=== PATIENT | male | born 1975 | race African-American/Black ===

== ENCOUNTER 2025-06-20 12:08 | Outpatient (CLI) | payer OTHER, SELFPAY ==
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
--- NOTE | ~2025-06-20 | XR_ITS ---
XR lumbar spine 6V w bending Indication: M54.50 - Low back pain, unspecified Comparison: None Findings: No fracture identified, no subluxation flexion-extension. Moderate loss of disc height at L5-S1. Soft tissues unremarkable Impression: No acute abnormality. Reviewed, dictated and finalized at location A. Impression: No acute abnormality.
--- NOTE | ~2025-06-20 | XR_ITS ---
EXAMINATION: XR hip RT min 2V, 06/20/2025 12:20 CDT HISTORY: M25.551 - Pain in right hip COMPARISON: No comparisons available. Findings: No acute fracture or malalignment. No significant degenerative changes. Soft tissues unremarkable. Impression: No acute fracture or malalignment. Reviewed, dictated and finalized at location A. Impression: No acute fracture or malalignment.
--- NOTE | ~2025-06-20 | XR_ITS ---
EXAMINATION: XR sacroiliac joints min 3V, 06/20/2025 12:20 CDT HISTORY: G89.29 - Other chronic pain, RIGHT SIDE WORSE COMPARISON: No comparisons available. Findings: No acute fracture or malalignment. No significant sclerosis of the sacroiliac joints, there is no bridging osteophyte formation or erosion identified. Soft tissues unremarkable. Impression: No acute fracture or malalignment. Reviewed, dictated and finalized at location A. Impression: No acute fracture or malalignment.
--- NOTE | ~2025-06-20 | XR_ITS ---
XR cervical spine 4-5V Indication: M54.2 - Cervicalgia Comparison: None Findings: Grade 1 retrolisthesis of C5 on C6, no fracture. Severe loss of disc height C5-6 and C6-7. Soft tissues unremarkable Impression: No acute abnormality. Reviewed, dictated and finalized at location A. Impression: No acute abnormality.
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
--- OUTSIDE RECORDS SUMMARY | 2025-06-20 13:59 | XMS_ITS | Encounter Summary ---
Author Organization [facility] Address [address] [facility] [place] [address] Care Team Providers Care Ring Stamper Name Role Phone Unavailable Primary Care Provider Unavailabl e Encounter Details Date Type Department Care Team (Late st Contact Info) Description 07/15/2022 Ophth Exam [facility] [address] [place] [address] Kacie Carlos DO [address] [place] [address] Social History Tobacco Use Types Packs/Day Years Used Date Smoking Tobacco: Former Cigarettes Q uit: 10/2018 Smokeless Tobacco: Never Alcohol Use Standard Drinks/Week Comments No 0 (1 standard drink = 0.6 oz pur e alcohol) Sex and Gender Information Value Date Recorded Sex Assigned at Not on file Legal Sex Male 5:32 AM [employer] Gender Identity Male 07/15/2022 6:19 PM CDT Sexual Orientation Not on file Occupation Industry Job Start Date Job End Date Not on file Not on file Not on file Not on file documented as of this encounter Plan of Treatment Not on file documented as of this encounter Visit Diagnoses Not on filedocumented in this encounter
--- OUTSIDE RECORDS SUMMARY | 2025-06-20 13:59 | XMS_ITS | Clinical Summary ---
Author Organization [facility] Address [address] [place] [address] Care Team Providers Care Family Nurse Practitioner Name Role Phone Unknown, Notinfile Primary Care Provider Unavail able Allergies Active Allergy Reactions Criticality Noted Date Comments Hydrocodone-Acetamin ophen Other (See comments) Low 02/07/2022 Pt reports that he only took it one time and it upset him States not allergic too Medications naproxen (NAPROSYN) 500 mg tablet Take 1 tablet (500 mg total) by mouth 2 (two) times a day with meals 30 tablet 4 Active Additional Information Patient taking differently:500 mg oral2 times daily PRN, Informant: Self, Reported on 12/29/2023 cyclobenzaprine (FLEXERIL) 10 mg tablet Take 1 tablet (10 mg total) by mouth 2 (two) times a day as needed for muscle spasms 20 tablet 4 Active Additional Information Patient not taking.Reported on 12/29/[address] (CYMBALTA) 30 mg capsule Take 1 capsule (30 mg total) by mouth daily 4 Active fluticasone propionate (FLONASE) 50 mcg/actuation nasal spray 2 sprays daily Act rema glimepiride (AMARYL) 2 mg tablet Take 1 tablet (2 mg total) by mouth daily Active Active Problems Problem Noted Date Diagnosed Date 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 Never 12/29/2023 Average Number of Drinks Not on file 024 Frequency of Binge Drinking Not on file 12/04 Hunger Vital Sign Answer Date Recorded Within the past 12 months, y ou worried that your food would run out before you got the money to buy more. Sometimes true Within the past 12 months, t he food you bought just didn't last and you didn't have money to get more. Sometimes true Personal Safety Answer Date Recorded Have you ever been in or are you currently in a harmful physical or emotional relationship or is someone making you feel afraid or unsafe? 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 Gender Identity Not on file Sexual Orientation Not on file Obstetrics History Last Filed Vital Signs Vital Sign Reading Time Taken Comments Blood Pressure 151/95 02/21/2025 10:36 AM CDT Pulse 72 02/21/2025 10:36 AM CDT Temperature 36.8 C (98.2 F) 02/21/2025 10:36 AM CDT Respiratory Rate 18 02/21/2025 10:3 6 AM CDT Oxygen Saturation 98% 02/21/2025 10: 36 AM CDT Inhaled Oxygen Concentration - - Weight 104.9 kg (231 lb 3.2 oz) 12/29/2023 1:08 PM CDT Height 175.3 cm (5' 9) 12/29/2023 1:08 PM CDT Body Mass Index 34.14 12/29/2023 1:08 PM CDT Plan of Treatment Health Maintenance Due Date Last Done Comments Colon Cancer Screening-Colonoscopy 1977 Depression Screening 1977 Hepatitis C Screening 1977 Prostate Cancer Screening-PSA 1977 Hepatitis B Screening 1995 Regular Well Visit/Exam 18-64 1995 Influenza Vaccine (#1) 2025 DTaP/Tdap/Td Vaccine (4 - Td or Tdap) 12/02/2026 12/02/2016, 12/02/2016, 07/20/2015 Pneumococcal vaccine <65 Aged Out No longer eligible based on patient's age to complete this topic Insurance [facility] [employer] GENERIC COMPENSATION Care Teams Family Nurse Practitioner Relationship Specialty Start Date End Date Unknown, Notinfile PCP - General 02/21/25
--- OUTSIDE RECORDS SUMMARY | 2025-06-20 13:59 | XMS_ITS | Clinical Summary ---
Author Organization [facility] Address [address] [place] [address] Care Team Providers Care Toaster Element Repairer Name Role Phone Unavailable Primary Care Provider Unavailabl e Source Comments [facility],non-owned Affiliates and Associated Physician Practices is amultiple site organization consisting of ambulatory clinics and hospital sitesin [place], [place], [place] and [place]. This disclosure is being madepursuant to the Care Everywhere program and may not contain all information available regarding this patient. Last updated 18.[facility] Allergies No known active allergies Medications * This document contains information received from the source organization and may not represent a complete record from that organization. * Be aware that medications may not be up to date on this document. Alwaysverify current medications with the patient. 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 Essential hypertension 05/06/2018 Family History Medical History Relation Name Comments Cancer - Other Maternal Grandmother Hypertension Sister Relation Name Status Comments Father Maternal Grandmother Mother Alive Sister Social History Tobacco Use Types Packs/Day Years Used Date Smoking Tobacco: Former Cigarettes Q uit: 10/2018 Smokeless Tobacco: Never Tobacco Cessation:Ready to Q uit: No; Counseling Given: No Alcohol Use Standard Drinks/Week Comments No 0 (1 standard drink = 0.6 oz pur e alcohol) Sex and Gender Information Value Date Recorded Sex Assigned at Not on file 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 Gender Identity Male 07/15/2022 6:19 PM CDT Sexual Orientation Not on file Occupation Industry Job Start Date Job End Date Not on file Not on file Not on file Not on file Last Filed Vital Signs Vital Sign Reading Time Taken Comments Blood Pressure 150/96 06/03/2024 12:45 PM CDT Pulse 73 06/03/2024 12:50 PM CDT Temperature 36.7 C (98 F) 06/03/2024 9:34 AM CDT Respiratory Rate 11 06/03/2024 12:50 PM CDT Oxygen Saturation 98% 06/03/2024 12:45 PM CDT Inhaled Oxygen Concentration - - Weight 102.1 kg (225 lb) 07/15/2022 3:04 PM CDT Height 175.3 cm (5' 9) 07/15/2022 3:04 PM CDT Body Mass Index 33.23 07/15/2022 3:04 PM CDT Plan of Treatment Health Maintenance Due Date Last Done Comments COLOGUARD (AGES 45-75) - COL ON CA SCREENING 1977 COLON MONITORING 1977 COLONOSCOPY - COLON CA SCREENING 1977 CT COLONOGRAPHY - COLON CA SCREENING 1977 Colorectal Cancer Screening 1977 FIT - COLON CA SCREENING 1977 FLEX SIG - COLON CA SCREENING 1977 LIPID TESTING 1977 HIV SCREENING 1992 HEPATITIS C SCREENING 09/07/1995 DTAP/TDAP/TD VACCINES (1 - Tdap) 1996 HEPATITIS B VACCINE (1 of 3 - 19+ 3-dose series) 1996 DEPRESSION SCREENING 10/05/2024 COVID-19 VACCINE ( - 2023-2 5 season) 2025 INFLUENZA VACCINE (#1) 2025 SCREENING FOR DIABETES 06/03/2027 4, 07/15/2022 ZOSTER VACCINE (1 of 2) 2027 HIB VACCINE Aged Out No longer eligi ble based on patient's age to complete this topic HPV VACCINE Aged Out No longer eligi ble based on patient's age to complete this topic MENINGOCOCCAL (Group B) VACCINE SHARED DECISION-MAKING Aged Out No longer eligible based on patient's age to complete this topic MENINGOCOCCAL GROUPS A/C/Y/W VACCINE Aged Out No longer eligible b ased on patient's age to complete this topic PNEUMOCOCCAL VACCINE Aged Out No long er eligible based on patient's age to complete this topic Procedures Procedure Name Priority Date/Time Associated Diagnosis Comments COMPREHENSIVE METABOLIC PANEL STAT 06/03/2024 9:39 AM CDT from Last 3 Months or Most Recently Relevant to Health Maintenance Results * (ABNORMAL) COMPREHENSIVE METABOLIC PANEL (06/03/2024 9:39 AM CDT) BUN 16 7 - 26 mg/dL 06/03/2024 10:15 AM [facility] Creatinine 1.08 0.71 - 1.16 mg/dL 06/03/2024 10:15 AM [facility] Sodium 137 136 - 145 mmol/L 06/03/2024 10:15 AM [facility] Potassium 3.8 3.5 - 4.5 mmol/L 06/03/2024 10:15 AM [facility] Chloride 107 98 - 107 mmol/L 06/03/2024 10:15 AM [facility] CO2 25 22 - 29 mmol/L 06/03/2024 10:15 AM [facility] Glucose 175(H) 70 - 115 mg/dL 06/03/2024 10:15 AM [facility] Calcium 9.6 8.4 - 10.2 mg/dL 06/03/2024 10:15 AM [facility] Protein Total 7.3 6.0 - 8.3 g/dL 06/03/2024 10:15 AM [facility] Albumin 4.1 3.4 - 5.0 g/dL 06/03/2024 10:15 AM [facility] Bilirubin Total 0.4 0.2 - 1.2 mg/dL 06/03/2024 10:15 AM [facility] Alkaline Phosphatase 52 40 - 150 U/L 06/03/2024 10:15 AM [facility] ALT 33 5 - 55 U/L 06/03/2024 10:15 AM [facility] AST 22 5 - 34 U/L 06/03/2024 10:15 AM [facility] Anion Gap 5(L) 6 - 16 06/03/2024 10:15 AM [facility] BUN/Creatinine Ratio 15 7 - 23 06/03/2024 10:15 AM [facility] Osmolality Calculated 289 275 - 295 mOsm/kg 06/03/2024 10:15 AM [facility] Albumin/Globulin Ratio 1.3 1.1 - 2.3 06/03/2024 10:15 AM [facility] eGFR by CKD-EPI 86(L) >=90 mL/min/1.7 3 m2 06/03/2024 10:15 AM [facility] Blood BLOOD SPECIMEN / Unknown Venipuncture / Unknown 06/03/2024 9:39 AM CDT 06/03/2024 9:[address] [facility] Torsten Nelson MD LAB - CHEMISTRY ORDERABLES F inal Result [facility] [address] [place] [address], [facility] [phone] from Last 3 Months or Most Recently Relevant to Health Maintenance Insurance [address] [address] [facility] [employer] Libertarian Liability
== END 2025-06-20 12:09 | disposition home or self-care (01) ==
PROVIDERS: PCP Nurse Practitioner Family; Visit Provider Anesthesiology Pain Medicine
DX: M53.3 Sacrococcygeal disorders, not elsewhere classified (principal); G89.29 Other chronic pain; M25.551 Pain in right hip; M54.50 Low back pain, unspecified; M47.817 Spondylosis without myelopathy or radiculopathy, lumbosacral region; M54.12 Radiculopathy, cervical region
CPT/HCPCS: 72050; 72114; 72202; 73502